=== PATIENT | female | born 1950 | race Caucasian/White ===

== ENCOUNTER 2020-07-04 13:44 | Outpatient (CLI) | payer MEDICARE, SELFPAY | END 2020-07-04 13:45 | disposition home or self-care (01) | LOC: ANHCOVIDVC 13:44 | PROVIDERS: PCP Internal Medicine | DX: Z23 Encounter for immunization (principal) | CPT/HCPCS: 0001A; 91300 ==

== ENCOUNTER 2020-07-25 13:41 | Outpatient (CLI) | payer MEDICARE, SELFPAY | END 2020-07-25 13:42 | disposition home or self-care (01) | LOC: ANHCOVIDVC 13:41 | PROVIDERS: PCP Internal Medicine | DX: Z23 Encounter for immunization (principal) | CPT/HCPCS: 0002A; 91300 ==

== ENCOUNTER → 2021-03-07 14:23 | Outpatient (CLI) | payer MEDICARE, SELFPAY ==
--- NOTE | ~2021-03-07 | CT_ITS ---
EXAMINATION: CT abdomen pelvis w con DATE: 03/07/2021 15:07 INDICATION: Abdomen pain TECHNIQUE: Computed tomography (CT) of the abdomen and pelvis was performed with 100 cc Omnipaque 350 intravenous contrast. The dose-length product was 952.18 mGy-cm. Automated exposure control and iter ative reconstruction technique were employed. COMPARISON: None. FINDINGS: Lung bases are unremarkable. Heart size normal. No significant pleural or pericardial effus ion. Liver is enlarged. There is pancreatic calcifications, suggesting chronic pancreatitis. Spleen, adrenal glands are unremarkable. There are small low-density lesions in the right kidney, too small t o characterize, although likely cysts. Bladder is unremarkable. Colonic diverticulosis without eviden ce for diverticulitis. Nonobstructive bowel gas pattern. There is atherosclerosis of the aorta withou t aneurysm. No free air or free fluid. There is mild-moderate lower thoracic and lumbar spondylosis. No acute osseous abnormality. IMPRESSION: 1. No acute abdominal abnormality. 2: Hepatomegaly. Reviewed, dictated and finalized at location [facility]
[2021-03-07 14:56] LABS: Estimated Glomerular Filt Rate > 60
== END ==
PROVIDERS: PCP Internal Medicine; Visit Provider Physician Assistant Medical
DX: R10.9 Unspecified abdominal pain (principal); R16.0 Hepatomegaly, not elsewhere classified
CPT/HCPCS: 74177; Q9967

== ENCOUNTER 2021-12-17 11:30 | Emergency (ER) | payer MEDICARE, SELFPAY ==
[2021-12-17 11:46] VITALS: BP 158/83; PULSE 77; RESP 20; TEMP 36.1; O2SAT 97
--- NOTE | 2021-12-17 11:52 | ED.EAR ---
HPI - Ear Problem General Chief complaint: Ear Stated complaint: Right Ear Irriatation Time Seen by Provider: 12/17/21 12:17 Source: patient Mode of arrival: ambulatory Limitations: no limitations History of Present Illness HPI Narrative: Ms. Marin is a 71-year-old female patient presenting to the clinic today with complaints of right ear irritation x3 days and cloudy urine and diarrhea x1 week.. She denies any fever or chills. She denies any urinary burning or frequency but does have urgency at times. Denies any foul-smelling odor. States that she gets her ears cleaned out approximately every 8 months and feels as though something is in her ear that is causing irritation she does suffer from seasonal allergies. She denies any known exposure negative COVID, flu, or strep. Diarrhea has been off and on for the last week. States that her stomach is rumbling Related Data Home Medications Medication Instructions Recorded Confirmed amlodipine 5 mg tablet 5 mg PO DAILY 06/18/21 12/17/21 ascorbic acid (vitamin C) 1,000 mg 1 g PO DAILY 06/18/21 12/17/21 tablet cholecalciferol (vitamin D3) 50 50 mcg PO DAILY 06/18/21 12/17/21 mcg (2,000 unit) capsule elderberry fruit 200 mg capsule 200 mg PO DAILY 06/18/21 12/17/21 lactobacillus combination no.9 4 4,000 mmu cells PO DAILY 06/18/21 12/17/21 billion cell capsule (Adult 50 Plus Probiotic) levothyroxine 75 mcg capsule 75 mcg PO DAILY 06/18/21 12/17/21 meclizine 12.5 mg tablet 12.5 mg PO TID PRN Dizziness 06/18/21 12/17/21 mecobalamin (vitamin B12) 1,000 1,000 mcg PO DAILY 06/18/21 12/17/21 mcg chewable tablet simvastatin 20 mg tablet 20 mg PO DAILY 06/18/21 12/17/21 valsartan 320 mg tablet 320 mg PO DAILY 06/18/21 12/17/21 fluticasone propionate 50 2 spray intranasal DAILY 12/17/21 12/17/21 mcg/actuation nasal spray,suspension metformin 500 mg tablet 500 mg PO BID 12/17/21 12/17/21 montelukast 10 mg tablet 10 mg PO HS 12/17/21 12/17/21 Allergies Allergy/AdvReac Type Severity Reaction Status Date / Time cyclobenzaprine Allergy Mild Hives Verified 12/17/21 11:34 [From Flexeril] Penicillins AdvReac Mild Hives Verified 12/17/21 11:33 Sulfa (Sulfonamide AdvReac Mild Hives Verified 12/17/21 11:33 Antibiotics) valacyclovir [From Valtrex] AdvReac Mild Vomiting Verified 12/17/21 11:33 madrobon AdvReac Mild Unknown Uncoded 12/17/21 11:33 Review of Systems Review of Systems: Pertinent positives per HPI. Patient denies any fever, chills, rash, headache, visual changes, dizziness, cough, runny nose, sore throat, shortness of breath, chest pain, palpitations, nausea, vomiting, diarrhea, constipation, abdominal pain. [facility] Past Medical History Medical History Diabetes GERD (gastroesophageal reflux disease) High cholesterol Hx of blood clots H/O BLOOD CLOT IN LEG Hypertension Melanoma of face Skin cancer of lip Thyroid condition Surgical History Surgical History H/O knee surgery H/O lymph node biopsy right neck H/O shoulder surgery H/O: hysterectomy History of bladder suspension procedure History of carpal tunnel surgery BILATERAL Family History Family History Sibling Diabetes mellitus Father Family history of cardiovascular disease Mother Family history of malignant neoplasm of breast in first degree relative Other Cerebrovascular accident Family history of malignant neoplasm Hypertension Social History Social History Smoking status: Never smoker Alcohol intake: never Substance use: never Substance use type: does not use Comments At the time of my signature, I reviewed and agree with the nursing past medical, surgical, social, and family history. There is no relevant family history pe
== END 2021-12-17 12:22 | disposition home or self-care (01) ==
PROVIDERS: Emergency Provider Nurse Practitioner Family; PCP Family Medicine
DX: H93.8X1 Other specified disorders of right ear (principal); N30.00 Acute cystitis without hematuria; E11.9 Type 2 diabetes mellitus without complications; K21.9 Gastro-esophageal reflux disease without esophagitis; I10 Essential (primary) hypertension; Z86.2 Personal history of diseases of the blood and blood-forming organs and certain disorders involving the immune mechanism; Z85.820 Personal history of malignant melanoma of skin; Z85.828 Personal history of other malignant neoplasm of skin
CPT/HCPCS: 81003; 87077; 87086; 87186; 99213; G0463

== ENCOUNTER 2022-05-14 01:20 | Day surgery (SDC) | payer OTHER, SELFPAY ==
[2022-05-03 13:37] VITALS: BMI 29.8
[2022-05-14 06:24] VITALS: BP 146/76; PULSE 73; RESP 20; TEMP 36.4; O2SAT 97; BMI 29.8
[2022-05-14] MEDS: LACTATED RINGERS 1,000 ML 150 ML IV CONT (06:27)
[2022-05-14 06:47] LABS: Glucose Point of Care 123 mg/dl (65-105)
--- NOTE | 2022-05-14 07:22 | WPDANESEPPF ---
Anes - Initial Pre Proc Eval Procedure: Operation Date: 05/14/22 07:30 Proposed Procedures p Screening Colonoscopy - Nicanor Lamar MD Date/Time: 05/14/22 07:22 Surgeon: Nicanor Lamar MD Pre Op Diagnosis: neoplasm screening Patient Data Age: 71 Gender: F Height: 1.63 m Weight: 78.8 kg Last Vital Signs Temp 97.6 F 05/14/22 06:24 Pulse 73 05/14/22 06:24 Resp 20 05/14/22 06:24 BP 146/76 H 05/14/22 06:24 Pulse Ox 97 05/14/22 06:24 O2 Del Method Room Air 05/14/22 06:24 Allergies Allergy/AdvReac Type Severity Reaction Status Date / Time Sulfa (Sulfonamide Allergy Severe Hives Verified 05/14/22 06:22 Antibiotics) cyclobenzaprine Allergy Mild Unknown Verified 05/14/22 06:22 [From Flexeril] latex Allergy Rash Verified 05/14/22 06:22 valacyclovir [From Valtrex] AdvReac Intermediate Gastrointestinal Verified 05/14/22 06:22 Upset madrobon AdvReac Mild Unknown Uncoded 05/14/22 06:22 Home Medications Medication Instructions Recorded Confirmed Type ascorbic acid (vitamin C) 1,000 mg 1 g PO BID 06/18/21 05/03/22 History tablet elderberry fruit 200 mg capsule 200 mg PO DAILY 06/18/21 05/03/22 History lactobacillus combination no.9 4 4,000 mmu cells PO DAILY 06/18/21 05/03/22 History billion cell capsule (Adult 50 Plus Probiotic) meclizine 12.5 mg tablet 12.5 mg PO TID PRN Dizziness 06/18/21 05/03/22 History aspirin 81 mg tablet,delayed 81 mg PO DAILY 12/18/21 05/03/22 History release (Adult Aspirin Regimen) cholecalciferol (vitamin D3) 50 50 mcg PO DAILY 12/18/21 05/03/22 History mcg (2,000 unit) capsule mecobalamin (vitamin B12) 1,000 1,000 mcg PO DAILY 12/18/21 05/03/22 History mcg chewable tablet omeprazole 20 mg capsule,delayed 20 mg PO DAILY 12/18/21 05/03/22 History release levothyroxine 75 mcg tablet 75 mcg PO DAILY #90 tabs 02/05/22 05/03/22 Rx naproxen 500 mg tablet 500 mg PO BID PRN pain #30 tabs 03/14/22 05/03/22 Rx tizanidine 2 mg capsule See Rx Instructions PO TID PRN 03/14/22 05/03/22 Rx muscle spasticity #20 caps glipizide 2.5 mg tablet, extended 2.5 mg PO DAILY #30 tabs 04/18/22 05/03/22 Rx release 24 hr acetaminophen 650 mg tablet 650 mg PO Q6H PRN Pain 05/03/22 05/03/22 History fluticasone propionate 50 See Rx Instructions .Route 05/03/22 05/03/22 History mcg/actuation nasal .COMPLEX PRN Allergy Symptoms spray,suspension azithromycin 250 mg tablet See Rx Instructions PO .COMPLEX #6 05/06/22 05/10/22 Rx tabs blood sugar diagnostic (Blood #100 ea 05/06/22 05/06/22 Rx Glucose Test strips) blood-glucose meter (Contour Next 05/06/22 History Meter) methylprednisolone 4 mg tablets in See Rx Instructions PO PER PKG DIR 05/06/22 05/10/22 Rx a dose pack (Medrol (Rehan)) #21 ea amlodipine 5 mg tablet See Rx Instructions .Route 05/13/22 05/14/22 Rx .COMPLEX #90 tabs montelukast 10 mg tablet See Rx Instructions .Route 05/13/22 05/14/22 Rx .COMPLEX #90 tabs simvastatin 20 mg tablet 20 mg PO QHS #90 tabs 05/13/22 05/14/22 Rx valsartan 320 mg tablet (Diovan) 320 mg PO DAILY #90 tabs 05/13/22 05/14/22 Rx Laboratory Tests 05/14/22 06:44 POC Capillary Glucose 123 mg/dl H mg/dl (65-105) Patient hx anesthesia problems: none Family hx anesthesia problems: none Results Review: All pre-operative results and documents have been reviewed as part of the pre-operative evaluation. [facility] Past Medical History Medical History Acute sinusitis Diabetes GERD (gastroesophageal reflux disease) High cholesterol Hx of blood clots H/O BLOOD CLOT IN LEG Hypertension Lumbago Melanoma of face Skin cancer of lip Thyroid condition URI (upper respiratory infection) Surgical History Surgical History H/O knee surgery H/O lymph node biopsy right neck H/O shoulder surger
--- NOTE | 2022-05-14 07:34 | PM.HPGS ---
History of Present Illness History of Present Illness Consent: Risks, benefits, and alternatives have been discussed and questions answered. Patient agrees to proceed with procedure. Chief complaint: neoplasm screening Narrative: Cha Marin is a 71 year old female here for screening colonoscopy, last one 10 years ago Review of Systems Constitutional: Constitutional: Denies headache(s) and Denies weakness Eyes: Eyes: Denies blurry vision ENT: Reports Normal hearing present, Denies headache(s) and Denies neck pain Cardiovascular: Cardiovascular: Denies chest pain and Denies dyspnea Respiratory: Respiratory: Denies dyspnea Gastrointestinal: Gastrointestinal: Reports no additional gastrointestinal complaints Genitourinary: Genitourinary: Denies dysuria Musculoskeletal: Musculoskeletal: Denies neck pain Integumentary/Breasts: Skin/Breast: Denies dry skin Neurologic: Reports Normal hearing present, Denies headache(s) and Denies weakness Psychiatric: Psychiatric: Denies anxiety Endocrine: Endocrine: Denies change in body appearance Hematologic/Lymphatic: Hematologic/Lymphatic: Denies easy bleeding Allergic/Immunologic: Allergic/Immunologic: Denies urticaria PMFSH Past Medical History Medical History Acute sinusitis Diabetes GERD (gastroesophageal reflux disease) High cholesterol Hx of blood clots H/O BLOOD CLOT IN LEG Hypertension Lumbago Melanoma of face Skin cancer of lip Thyroid condition URI (upper respiratory infection) Surgical History Surgical History H/O knee surgery H/O lymph node biopsy right neck H/O shoulder surgery H/O: hysterectomy History of bladder suspension procedure History of carpal tunnel surgery BILATERAL Family History Family History Father Cerebrovascular accident Hypertension Heart disease Mother Cancer Sibling Diabetes mellitus Sibling Diabetes mellitus Father Family history of cardiovascular disease Mother Family history of malignant neoplasm of breast in first degree relative Other Family history of malignant neoplasm Social History Social History Smoking status: Never smoker Alcohol intake: current Drinks per week: 2 Alcohol use details: seldom Substance use: never Substance use type: does not use Lack of Transportation: No Lack of Food: Never True Current Housing: I Have Housing Concerned About Future Housing: No Difficulty Paying Gas/Electric Bills: No Difficulty Paying for Meds: No Currently Unemployed: No Education: High School Diploma/GED Difficulty w/ Childcare or Family Care: No Living arrangements: alone Gender identity (if verbalized by the patient): Female Sexual Orientation (if Verbalized by the Patient): Straight or Heterosexual Spiritual care concerns: No Meds Home Medications and Allergies Home Medications Medication Instructions Recorded Confirmed Type ascorbic acid (vitamin C) 1,000 mg 1 g PO BID 06/18/21 05/03/22 History tablet elderberry fruit 200 mg capsule 200 mg PO DAILY 06/18/21 05/03/22 History lactobacillus combination no.9 4 4,000 mmu cells PO DAILY 06/18/21 05/03/22 History billion cell capsule (Adult 50 Plus Probiotic) meclizine 12.5 mg tablet 12.5 mg PO TID PRN Dizziness 06/18/21 05/03/22 History aspirin 81 mg tablet,delayed 81 mg PO DAILY 12/18/21 05/03/22 History release (Adult Aspirin Regimen) cholecalciferol (vitamin D3) 50 50 mcg PO DAILY 12/18/21 05/03/22 History mcg (2,000 unit) capsule mecobalamin (vitamin B12) 1,000 1,000 mcg PO DAILY 12/18/21 05/03/22 History mcg chewable tablet omeprazole 20 mg capsule,delayed 20 mg PO DAILY 12/18/21 05/03/22 History release levothyroxine 75 mcg tablet 75 mcg
[2022-05-14 07:52] VITALS: BP 93/49; PULSE 63; RESP 24; O2SAT 97
[2022-05-14 08:02] VITALS: BP 104/51; PULSE 62; RESP 14; O2SAT 97
[2022-05-14 08:12] VITALS: BP 118/63; PULSE 65; RESP 18; O2SAT 100
== END 2022-05-14 08:29 | disposition home or self-care (01) ==
PROVIDERS: PCP Physician Assistant Medical; Visit Provider Internal Medicine Gastroenterology
PROC: 0DJD8ZZ Inspection of Lower Intestinal Tract, Via Natural or Artificial Opening Endoscopic (ICD-10-PCS; CPT 45378; principal; 2022-05-14 07:30)
DX: Z12.11 Encounter for screening for malignant neoplasm of colon (principal); K57.30 Diverticulosis of large intestine without perforation or abscess without bleeding; K63.5 Polyp of colon; K64.8 Other hemorrhoids; E11.9 Type 2 diabetes mellitus without complications; K21.9 Gastro-esophageal reflux disease without esophagitis; E78.00 Pure hypercholesterolemia, unspecified; I10 Essential (primary) hypertension; E07.9 Disorder of thyroid, unspecified; Z79.82 Long term (current) use of aspirin; Z79.84 Long term (current) use of oral hypoglycemic drugs
CPT/HCPCS: 45385; 82948; 88305; J2704; J7120

== ENCOUNTER 2022-07-17 09:29 | Outpatient (CLI) | payer OTHER, SELFPAY ==
[2022-07-17 10:58] LABS: Alanine Aminotransferase 48 U/L (6-35); Aspartate Amino Transferase 57 U/L (14-36)
== END 2022-07-17 09:30 | disposition home or self-care (01) ==
PROVIDERS: PCP Physician Assistant Medical; Visit Provider Podiatrist Foot & Ankle Surgery
DX: B35.1 Tinea unguium (principal)
CPT/HCPCS: 36415; 84450; 84460

== ENCOUNTER 2022-07-30 08:00 | Outpatient (RCR) | payer OTHER, SELFPAY ==
[2022-07-30 08:18] VITALS: BMI 30.9
[2022-07-30 08:22] VITALS: BMI 30.9
== END 2022-10-07 08:59 | disposition home or self-care (01) ==
LOC: ANHDMC 08:00
PROVIDERS: PCP Physician Assistant Medical; Visit Provider Nurse Practitioner Family
DX: E11.9 Type 2 diabetes mellitus without complications (principal); Z71.89 Other specified counseling; Z71.3 Dietary counseling and surveillance
CPT/HCPCS: 97802; G0108

== ENCOUNTER 2023-05-07 09:38 | Outpatient (CLI) | payer OTHER, SELFPAY ==
[2023-05-07 10:35] LABS: Alanine Aminotransferase 26 U/L (6-35); Aspartate Amino Transferase 39 U/L (14-36)
== END 2023-05-07 09:39 | disposition home or self-care (01) ==
PROVIDERS: PCP Nurse Practitioner Family; Visit Provider Podiatrist Foot & Ankle Surgery
DX: B35.1 Tinea unguium (principal)
CPT/HCPCS: 36415; 84450; 84460